=== PATIENT | male | born 1965 | race Two or more races ===

== ENCOUNTER → 2018-12-13 | Outpatient (CLI) | payer OTHER | END | disposition home or self-care (01) | LOC: RADUSWWP 12:04 | PROVIDERS: ATTEND Legal Medicine | DX: R20.0 Anesthesia of skin (principal); J00 Acute nasopharyngitis [common cold] | CPT/HCPCS: 93922 ==

== ENCOUNTER 2024-07-08 14:31 | Emergency (ER) | payer OTHER ==
[2024-07-08] MEDS ORDERED: ASPIRIN 325 MG TAB ONE (19:19)
[2024-07-08] MEDS ORDERED: DOXYCYCLINE 100 MG CAP ONE (22:54)
--- NOTE | 2024-07-31 17:17 | CT ---
Patient Marquez Coburn ID [id number] Order # CTA CHEST EXAMINATION TYPE: CT chest angio for PE DATE OF EXAM: 07/08/2024 INDICATION: Rule out PE CT DLP: 302.7 mGycm, Automated exposure control for dose reduction was used. CONTRAST: Patient injected with Isovue COMPARISON: No comparison available on downtime PACS. TECHNIQUE: CT of the chest is performed on a spiral scan at 2 mm thick sections. Study is performed with intravenous contrast timed for evaluation for pulmonary embolism. This will limit additional po rtions of the evaluation. 3-D MIP images reconstructed by the technologist are reviewed on the compu ter in the coronal and sagittal planes. FINDINGS: No persistent filling defects are evident to suggest an acute pulmonary embolism. There is a prominent right hilar lobe measuring 1.4 cm. The ascending aorta diameter at the level of the main pulmonary artery is 2.2 cm. The main pulmonary artery diameter at the bifurcation is 2.5 cm. Emphysematous changes are evident. There is an area of increased density within the posterior left elisabeth ng measuring 8.3 x 1.1 m. Atelectasis and pneumonia should be considered. Underlying mass is not excl uded. This should be followed to clearing. Limited CT sections were through the upper abdomen. Upper abdomen appears unremarkable. IMPRESSION: 1. Area of increased density posterior left lung. Atelectasis pneumonia or mass within the differenti al. Follow-up to clearing is recommended. 2. No acute pulmonary embolism. 3. Prominent right hilar lymph node. Follow-up recommended.
--- NOTE | 2024-08-09 08:47 | XR ---
Patient Marquez Coburn ID [id number] Order # EXAMINATION TYPE: XR chest 2V DATE OF EXAM: 07/08/2024 COMPARISON: No comparison available on downtime PACS. INDICATION: Chest pain TECHNIQUE: Frontal and lateral views of the chest are obtained. FINDINGS: The heart size is normal. The pulmonary vasculature is normal. The lungs are clear. There is hyperinflation and flattening of the diaphragms compatible with COPD. IMPRESSION: 1. No acute pulmonary process. 2. COPD
== END 2024-07-08 23:05 | disposition home or self-care (01) ==
LOC: EC 14:31
CPT/HCPCS: 71046; 71275; 93005; 99285